=== PATIENT | female | born 1985 | race Two or more races ===

== ENCOUNTER 2021-03-19 18:47 | Emergency (ER) | payer OTHER ==
[~2021-03-19] VITALS: Ht 165.1 cm; Wt 60.3 kg
== END 2021-03-19 21:12 | disposition home or self-care (01) ==
LOC: ER 18:47
DX: M54.2 Cervicalgia (principal); M54.5 Low back pain

== ENCOUNTER 2021-08-21 12:09 | Emergency (ER) | payer OTHER ==
[~2021-08-21] VITALS: Ht 165.1 cm; Wt 59.0 kg
== END 2021-08-21 14:49 | disposition home or self-care (01) ==
LOC: ER 12:09
DX: M62.830 Muscle spasm of back (principal)